=== PATIENT | female | born 1950 | race Caucasian/White ===

== ENCOUNTER → 2020-09-20 | Outpatient (CLI) | payer MEDICARE ==
[2016-05-23 14:15] VITALS: BP 173/91
[~2020-09-20] MED LIST: ACETAMINOPHEN-H1 TA2 PO; ATIVAN2 MG PO; CIPRO500 M1 PO; FLAGYL500 M1 PO; LOPRESSOR100 M1 PO; NEURONTIN300 M1 PO; PRILOSEC 20MG20 MG PO; PROZAC20 M1 PO; REMERON30 M1 PO
== END ==
LOC: RAD 08:47
DX: N32.89 Other specified disorders of bladder (principal)
CPT/HCPCS: Q9967

== ENCOUNTER 2022-04-02 12:48 | Outpatient (RCR) | payer MEDICARE | END 2022-04-07 | disposition still patient (30) | LOC: PT | DX: Z98.890 Other specified postprocedural states (principal) ==

== ENCOUNTER 2022-04-15 14:00 | Outpatient (RCR) | payer MEDICARE | END 2022-05-07 | disposition still patient (30) | LOC: PT | DX: S42.301D Unspecified fracture of shaft of humerus, right arm, subsequent encounter for fracture with routine healing (principal); X58.XXXD Exposure to other specified factors, subsequent encounter ==

== ENCOUNTER 2022-05-08 13:00 | Outpatient (RCR) | payer MEDICARE | END 2022-06-07 | disposition home or self-care (01) | LOC: PT | DX: S42.301D Unspecified fracture of shaft of humerus, right arm, subsequent encounter for fracture with routine healing (principal) ==

== ENCOUNTER 2024-04-11 08:00 | Outpatient (RCR) | payer MEDICARE | END 2024-05-07 | disposition home or self-care (01) | LOC: PT | DX: G89.29 Other chronic pain (principal); M54.42 Lumbago with sciatica, left side; M54.41 Lumbago with sciatica, right side; M79.604 Pain in right leg; M79.605 Pain in left leg ==